=== PATIENT | female | born 1960 | race American Indian/Alaskan Native ===

== ENCOUNTER 2016-12-21 11:56 | Emergency (ER) | payer OTHER ==
[2016-12-21 13:03] VITALS: BP 146/102
--- NOTE | 2016-12-21 13:03 | Emergency Department Report ---
Stated Complaint: PELVIC PAIN /FALL Time Seen by Provider: 12/21/16 12:59 - HPI History of Present Illness: pt states she was climbing out of tub on Tuesday night and she fell out of tub. PT states she was trying to avoid using the step because she always trips on the step. PT states she flipped out of the tub and landed on floor. pt states her pelvis hurts gayle. - ROS Review of Systems: + frontal headache able to ambulate - Exam Physical Exam: steady gait noted in triage MSE screening note: Focused history and physical exam performed. Due to findings the following was ordered: xr ED Disposition for MSE Condition: Stable
--- NOTE | 2016-12-21 13:43 | XRay Report ---
BILATERAL HIPS WITH PELVIS, 3 VIEWS: History: Pain. Findings: Bone mineralization is within normal limits. There is no evidence for fracture, dislocation or pelvic diastasis. No advanced joint pathology is detected. The soft tissues are unremarkable. Impression: Unremarkable exam.
[2016-12-21] MEDS ORDERED: TORADOL IM ONE (16:01)
--- NOTE | 2016-12-21 18:39 | Emergency Department Report ---
Entered by NAOMY MALIK, acting as scribe for BRETT ADAIR PA. ED Fall HPI - General Chief Complaint: Fall Stated Complaint: PELVIC PAIN /FALL Time Seen by Provider: 12/21/16 12:59 Source: patient Mode of arrival: Ambulatory - History of Present Illness Initial Comments: 55 y/o female with a PMHx of asthritis and HTN presents to the ED c/o a fall injury that occurred yesterday morning. Patient states she stepped out of the tub, stepped on her shoes, and she subsequently slipped and fell backwards on the floor onto her buttocks. In the ED, patient c/o buttocks pain and bilateral hip pain, but she denies head injury/trauma, LOC, headache, blurry vision, dizziness, neck pain, abdominal pain, nausea, vomiting, chest pain, SOB, and back pain. Rates pain a 10/10 in severity, which she describes as aching in quality. Aggravated with movement and alleviated with inactivity. NKDA. RODRIGES Complaint: fall Onset/Timin -: days(s) Fall From: standing When Fall Occurred: # days [employer] (3) Fall Witnessed: no Place Fall Occurred: home Loss of Consciousness: none Prolonged Down Time?: no Symptoms Prior to Fall: none Location: buttocks, other (bilateral hips) Severity: severe Severity scale (0 -10): 10 Quality: aching Context: tripped/slipped Associated Symptoms: denies. denies: headache, neck pain, numbness, weakness, chest paint, shortness of breath, abdominal pain, hematuria, unable to walk, lightheaded, vertigo, confusion - Related Data Home Medications Medication Instructions Recorded Confirmed Last Taken Gabapentin [Neurontin] 600 mg PO QPM 12/21/16 12/21/16 Unknown Metoprolol 25 mg PO DAILY 12/21/16 12/21/16 Unknown Previous Rx's Medication Instructions Recorded Last Taken Type Cyclobenzaprine [Flexeril] 10 mg PO TID PRN #24 tablet 12/21/16 Unknown Rx Naproxen [Naprosyn] 500 mg PO BID #40 tablet 12/21/16 Unknown Rx Allergies Allergy/AdvReac Type Severity Reaction Status Date / Time No Known Allergies Allergy Unverified 12/21/16 12:57 ED Review of Systems Comment: All other systems reviewed and negative Constitutional: denies: chills, fever Eyes: denies: eye pain, eye discharge, vision change ENT: denies: ear pain, throat pain Respiratory: denies: cough, orthopnea, shortness of breath, SOB with exertion, SOB at rest, stridor, wheezing Cardiovascular: denies: chest pain, palpitations Endocrine: no symptoms reported Gastrointestinal: denies: abdominal pain, nausea, vomiting, diarrhea Genitourinary: denies: urgency, dysuria, frequency, hematuria, discharge, abnormal menses, dyspareunia Musculoskeletal: arthralgia (buttocks pain and bilateral hip pain). denies: back pain, joint swelling, myalgia Skin: denies: rash, lesions Neurological: denies: headache, weakness, numbness, paresthesias ED Past Medical Hx - Past Medical History Previous Medical History?: Yes Hx Hypertension: Yes Hx Arthritis: Yes - Surgical History Past Surgical History?: Yes Additional Surgical History: Gastric bypass - Family History Family history: no significant - Social History Smoking Status: Never Smoker Substance Use Type: Alcohol, Prescribed - Medications Home Medications: Home Medications Medication Instructions Recorded Confirmed Last Taken Type Cyclobenzaprine [Flexeril] 10 mg PO TID PRN #24 tablet 12/21/16 Unknown Rx Gabapentin [Neurontin] 600 mg PO QPM 12/21/16 12/21/16 Unknown History Metoprolol 25 mg PO DAILY 12/21/16 12/21/16 Unknown History Naproxen [Naprosyn] 500 mg PO BID #40 tablet 12/21/16 Unknown Rx ED Physical Exam - General Limitations: No Limitations General appearance: alert, in no apparent distress - Head Head exam: Present: atraumatic, normocephalic - Eye Eye exam: Present: normal appearance, PERRL, EOMI Pupils: Present: normal accommodation - ENT ENT exam: Present: normal exam, mucous membranes moist, normal external ear exam - Neck Neck exam: Present: normal inspection, full ROM. Absent: tenderness, meningismus, lymphadenopathy - Respiratory Respiratory exam: Present: normal lung sounds bilaterally. Absent: respiratory distress, wheezes, rales, rhonchi, stridor, chest wall tenderness, accessory muscle use, decreased breath sounds - Cardiovascular Cardiovascular Exam: Present: regular rate, normal rhythm, normal heart sounds. Absent: systolic murmur, diastolic murmur, rubs, gallop - GI/Abdominal GI/Abdominal exam: Present: soft, normal bowel sounds. Absent: distended, tenderness, guarding, rebound, rigid - Extremities Exam Extremities exam: Present: full ROM, tenderness (bilateral hips), normal capillary refill. Absent: normal inspection, pedal edema, joint swelling, calf tenderness - Expanded Lower Extremity Exam Right Hip exam: Present: normal inspection (bilaterally), full ROM, external rotation , internal rotation, pelvic stability. Absent: tenderness, swelling, abrasion, laceration, ecchymosis, deformity, crepidus, dislocation, erythema, shortening Upper Leg exam: Present: full ROM (bilaterally), ecchymosis (contusion to RT lateral aspect of thigh). Absent: normal inspection, tenderness, swelling, abrasion, laceration, deformity, crepidus, dislocation, erythema Knee exam: Present: normal inspection (bilaterally), full ROM, full knee extension. Absent: tenderness, swelling, abrasion, laceration, ecchymosis, deformity, crepidus, dislocation, erythema, effusion, pain w/ pronation/ supination, posterior draw sign, pain/laxity with valgus, pain/laxity with varus Lower Leg exam: Present: normal inspection (bilaterally), full ROM. Absent: tenderness, swelling, abrasion, laceration, ecchymosis, deformity, crepidus, dislocation, erythema, palpable cord, Darrell's sign Ankle exam: Present: normal inspection, full ROM. Absent: tenderness, swelling , abrasion, laceration, ecchymosis, deformity, crepidus, dislocation, erythema, anterior draw sign Foot/Toe exam: Present: normal inspection (bilaterally), full ROM. Absent: tenderness, swelling, abrasion, laceration, ecchymosis, deformity, crepidus, dislocation, erythema, amputation, puncture wound, foreign body, calcaneal tenderness, tenderness at base of 5th metatarsal, nail avulsion, subungual hematoma Neuro vascular tendon exam: Present: no vascular compromise. Absent: pulse deficit, abnormal cap refill, motor deficit, sensory deficit, tendon deficit, extremity cold to touch, pallor, abnormal 2-point discrimination, decreased fine /light touch, foot drop, peroneal nerve deficit, significant pain with passive ROM of distal joint Gait: Positive: observed and limited by pain - Back Exam Back exam: Present: normal inspection, full ROM. Absent: tenderness, CVA tenderness (R), CVA tenderness (L), muscle spasm, paraspinal tenderness, vertebral tenderness, rash noted - Neurological Exam Neurological exam: Present: alert, oriented X3, CN II-XII intact, normal gait ( limited due to pain), reflexes normal. Absent: motor sensory deficit - Psychiatric Psychiatric exam: Present: normal affect, normal mood - Skin Skin exam: Present: warm, dry, intact. Absent: rash ED Course Vital Signs 12/21/16 12:59 Temperature 99.5 F Pulse Rate 86 Respiratory 18 Rate Blood Pressure 146/102 O2 Sat by Pulse 99 Oximetry ED Medical Decision Making - Radiology Data Radiology results: report reviewed, image reviewed BILATERAL HIPS WITH PELVIS, 3 VIEWS: History: Pain. Findings: Bone mineralization is within normal limits. There is no evidence for fracture, dislocation or pelvic diastasis. No advanced joint pathology is detected. The soft tissues are unremarkable. Impression: Unremarkable exam. Transcribed By: TTR Dictated By: VELVET TIDWELL JR, MD Electronically Authenticated By: VELVET TIDWELL JR, MD Signed Date/Time: 12/21/16 1341 - Medical Decision Making 55 year-old female presents with acute bilateral buttock pain ED course: X-ray taken of bilateral hips w/ pelvis X-ray shows no fracture or dislocation of pelvis and hips. see report above She received Toradol in the ED. Vital signs stable patient is in no acute or respiratory distress. Discussed findings with patient about diagnoses. Discussed treatment in ED with patient Discussed with patient to take prescribed Flexeril before bed and not prior to operating a vehicle Discussed with patient to follow up with PCP as referred, and to return to the ED if symptoms return or worsen. Patient states understanding and will follow instructions. Pt verbally states understanding and will comply to follow up. ED Disposition Clinical Impression: Fall Qualifiers: Encounter type: initial encounter Qualified Code(s): W19.XXXA - Unspecified fall, initial encounter Contusion Qualifiers: Encounter type: initial encounter Contusion area: thigh Laterality: right Qualified Code(s): S70.11XA - Contusion of right thigh, initial encounter Disposition: - TO HOME OR SELFCARE Is pt being admited?: No Does the pt Need Aspirin: No Condition: Stable Instructions: Contusion in Adults (ED), Trigger Point Pain (ED), Musculoskeletal Pain (ED), Heat Pack Application (ED) Prescriptions: Cyclobenzaprine [Flexeril] 10 mg PO TID PRN #24 tablet PRN Reason: Muscle Spasm Naproxen [Naprosyn] 500 mg PO BID #40 tablet Referrals: PRIMARY CARE, [Primary Care Provider] - 3-5 Days DOROTHY COTTON MD [Referring] - 3-5 Days JOSH BOONE MD [Staff Physician] - 3-5 Days TRUDY ARMENDARIZ MD [Staff Physician] - 3-5 Days HARVEY ELIZONDO MD [Staff Physician] - 3-5 Days Forms: Work/School Release Form(ED) Time of Disposition: 16:06 This documentation as recorded by the KING abdi JASMINE,accurately reflects the service I personally performed and the decisions made by GIOVANY ramirez OYINLOLA A, PA.
== END 2016-12-21 16:21 | disposition home or self-care (01) ==
LOC: ED 11:56
DX: S70.11XA Contusion of right thigh, initial encounter (principal); M25.551 Pain in right hip; M25.552 Pain in left hip; I10 Essential (primary) hypertension; M19.90 Unspecified osteoarthritis, unspecified site; W01.0XXA Fall on same level from slipping, tripping and stumbling without subsequent striking against object, initial encounter; Y93.89 Activity, other specified; Y99.8 Other external cause status; Y92.89 Other specified places as the place of occurrence of the external cause
CPT/HCPCS: 73521; 96372; 99283; J1885